=== PATIENT | male | born 1945 | race Caucasian/White ===

== ENCOUNTER 2022-08-19 06:25 | Inpatient (IN) | payer MEDICARE, BC ==
[~2022-08-19] VITALS: Ht 175.3 cm; Wt 92.1 kg
--- NOTE | 2022-08-19 06:28 | NUR ---
bib from home for body pain and chills. noted 1 episode of hematuria febrile at triage 103.3. PT a/ox3. Tolerating R/ A well with no resp distress. Safety measures in place. Connected pt to pox and monitor.
--- NOTE | 2022-08-19 06:36 | NUR ---
RAC #18G S/L BLOOD COLLECTED AND SENT TO LAB
--- NOTE | 2022-08-19 06:36 | NUR ---
COVID ANTIGEN SWAB COLLECTED AND SENT TO LAB
--- NOTE | 2022-08-19 06:40 | NUR ---
PROVIDED PT WITH URINAL; AWAITING URINE SAMPLE
--- NOTE | 2022-08-19 06:45 | NUR ---
DR. PAIZ AT BEDSIDE
[2022-08-19] MEDS ORDERED: ACETAMINOPHEN ES 500 MG TABLET ONE (06:52)
[2022-08-19] MEDS ORDERED: VANCOMYCIN 1 GM /D5W 250 ML PB IV ONE (06:54)
[2022-08-19] MEDS ORDERED: ACETAMINOPHEN ES 500 MG TABLET PO ONE (07:00)
[2022-08-19] MEDS ORDERED: IV NS 0.9% 1,000 ML BAG IV ONE (07:00)
[2022-08-19] MEDS ORDERED: VANCOMYCIN 1 GM in IV D5W 250 ML IV ONE (07:00)
[2022-08-19] MEDS ORDERED: AZTREONAM 2 G in IV NS 0.9% 100 ML IV ONE (07:00)
--- NOTE | 2022-08-19 07:10 | NUR ---
COVID ANTIGEN SWAB COLLECTED AND SENT TO LAB
--- NOTE | 2022-08-19 07:12 | NUR ---
URINE COLLECTED AND SENT TO LAB
--- NOTE | 2022-08-19 07:18 | NUR ---
INFLUENZA SWAB COLLECTED AND SENT TO LAB
[2022-08-19 07:46] LABS: BILIRUBIN,URINE 1+ (NEGATIVE); COLOR,URINE DARK YELLOW (YELLOW); LEUKOCYTE ESTERASE ,URINE 2+ (NEGATIVE); NITRITE, URINE NEGATIVE (NEGATIVE); PROTEIN,URINE 2+ mg/dl (NEGATIVE); UGLUCOSE NEGATIVE (NEGATIVE); UROBILINOGEN,URINE 0.2 EU/dL (0.2)
[2022-08-19 07:47] LABS: BACTERIA,URINE Rare /HPF (None Seen); BASOPHILS % (AUTO) 0.2 % (0.0-2.0); HEMATOCRIT 44 % (39-51); HEMOGLOBIN 14.3 g/dL (13.5-17.5); LYMPHOCYTES # (AUTO) 1.3 K/uL (0.8-4.8); LYMPHOCYTES % (AUTO) 10.7 % (20.0-44.0); MEAN CORPUSCULAR HGB CONC 33 g/dl (31.0-36.0); MEAN CORPUSCULAR VOLUME 90 fL (80-96); MONOCYTES # (AUTO) 0.2 K/uL (0.1-1.30); MONOCYTES % (AUTO) 1.5 % (2.0-12.0); NEUTROPHILS # (AUTO) 10.6 K/uL (1.8-8.9); NEUTROPHILS % (AUTO) 86.6 % (43.0-81.0); PLATELET COUNT (AUTO) 227 K/uL (150-450); RBC,URINE TOO NUMEROUS TO COUN /HPF (0-2); SQUAMOUS EPITHELIAL CELL,UR Few /HPF (None Seen); WHITE BLOOD COUNT (AUTO) 12.2 K/uL (4.3-11.0)
[2022-08-19 08:01] LABS: ALANINE AMINOTRANSFERASE 32 U/L (12-78); ALBUMIN 3.7 g/dL (3.4-5.0); ALKALINE PHOSPHATASE 102 U/L (46-116); ASPARTATE AMINOTRANSFERASE 17 U/L (15-37); BILIRUBIN,DIRECT 0.2 mg/dL (0.0-0.2); BILIRUBIN,TOTAL 0.5 mg/dL (0.2-1.0); CALCIUM, SERUM 11.7 mg/dL (8.5-10.1); CARBON DIOXIDE 25 mmol/L (21-32); CHLORIDE 104 mmol/L (98-107); CREATININE 1.1 mg/dL (0.6-1.3); GLUCOSE 132 mg/dL (74-106); POTASSIUM 4.2 mmol/L (3.5-5.1); SODIUM SERUM 142 mmol/L (136-145); TOTAL PROTEIN, SERUM 7.6 g/dL (6.4-8.2); UREA NITROGEN, BLOOD 13 mg/dL (7-18)
[2022-08-19] MEDS ORDERED: BACITRACIN ZINC OINT PACKET 1 EA PACKET TP ONE (08:15)
--- NOTE | 2022-08-19 09:23 | NUR ---
RESTING AT THIS TIME
--- NOTE | 2022-08-19 09:48 | NUR ---
ROOM 117-2
[2022-08-19] MEDS ORDERED: MAGNESIUM HYDROXIDE 30 ML UDC PO PRN (10:00)
[2022-08-19] MEDS ORDERED: ACETAMINOPHEN 325 MG TABLET PO PRN (10:00)
[2022-08-19] MEDS ORDERED: MAG HYDROX/AL HYDROX/SIMETH 30 ML UDC PO PRN (10:00)
[2022-08-19] MEDS ORDERED: CEFEPIME 1 GM in IV D5W 50 ML IV SCH (10:00)
[2022-08-19] MEDS ORDERED: ONDANSETRON HCL/PF 4 MG/2 ML VIAL IVP PRN (10:00)
[2022-08-19] MEDS ORDERED: Z GUARD REMEDY 4 OZ OINT TP PRN (10:00)
[2022-08-19] MEDS ORDERED: CETI-194 PO (10:09)
[2022-08-19] MEDS ORDERED: IBAN150T16 PO (10:09)
[2022-08-19] MEDS ORDERED: LACT1CAP71 PO (10:09)
[2022-08-19] MEDS ORDERED: SERT100T PO (10:09)
[2022-08-19] MEDS ORDERED: ATOR40TA PO (10:09)
[2022-08-19] MEDS ORDERED: TAMS-12 PO (10:09)
[2022-08-19] MEDS ORDERED: ASPI-1169 PO (10:09)
[2022-08-19] MEDS ORDERED: OMEP20TA5 PO (10:09)
[2022-08-19] MEDS ORDERED: CHOL100062 PO (10:09)
--- NOTE | 2022-08-19 10:35 | NUR ---
OK TO GIVE MAXPIMIN IVPB ANTBIOTIC WITH ALLERIC TO PCN
[2022-08-19] MEDS: CEFEPIME 2 GM in IV D5W 100 ML IV SCH ×2 (10:48→23:17)
--- NOTE | 2022-08-19 10:56 | NUR ---
HAND OFF TO YELENA. Dooley RN TO ROOM 117-2 VIA CAM PIERRE VS AND CONDITION
--- NOTE | 2022-08-19 11:15 | NUR ---
PATIENT TRANSFERED AND ADMITTED PER ACLS PROTOCOL
--- NOTE | 2022-08-19 11:25 | NUR ---
RN OPENING NOTE RECEIVED PATIENT FROM ER, BROUGHT VIA GURNEY, ON RA WITH SAT 98%. IV ACCESS RIGHT AC, RUNNING NS AT 100 ML/HR. PT ABLE TO USE URINAL AND AMBULATE TO THE BATHROOM WITH ASSISTANCE. SAFETY MEASURES IMPLEMENTED, BED LOCKED AND IN LOWEST POSITION, WILL CONTINUE TO MONITOR.
[2022-08-19 12:00] VITALS: BP 111/56
[2022-08-19] MEDS: IV NS 0.9% 1,000 ML IV PRN ×2 (12:38→23:41)
[2022-08-19 16:00] VITALS: BP 109/59
[2022-08-19] MEDS: VANCOMYCIN 1 GM in IV D5W 250 ML IV SCH (17:06)
--- NOTE | 2022-08-19 18:28 | NUR ---
RN OPENING NOTE PATIENT ASLEEP IN BED, ON RA WITH SAT 98%. IV ACCESS RIGHT AC, RUNNING NS AT 100 ML/HR. PT ABLE TO USE URINAL AND AMBULATE TO THE BATHROOM WITH ASSISTANCE. SAFETY MEASURES IMPLEMENTED, BED LOCKED AND IN LOWEST POSITION, WILL ENDORSE TO THE NEXT SHIFT NURSE FOR MARCELLA.
--- NOTE | 2022-08-19 19:30 | NUR ---
RN NOTES RECEIVED REPORT FROM MORNING SHIFT. PATIENT IN BED AT BEDSIDE. ON ROOM AIR SATING 96% NO SOB NOT ON ANY RESPIRATORY DISTRESS NOTED AT THIS TIME. WITH IV ACCESS AT LAC # 20 PATENT FLUSHES WELL RUNNING NS 100CC/HR. ALL SAFETY MEASURES IN PLACE HOB ELEVATED. CALL LIGHT WITHIN REACH. WILL CLOSELY MONITOR THE PATIENT
[2022-08-19 20:00] VITALS: BP 119/61
[2022-08-19] MEDS: ATORVASTATIN 40 MG TABLET PO SCH (21:27)
[2022-08-19] MEDS ORDERED: HYDROCODONE/APAP 5/325MG TABLET PO PRN (23:30)
[2022-08-20] VITALS: BP 109/61
[2022-08-20 04:00] VITALS: BP 99/54
[2022-08-20] MEDS: VANCOMYCIN 1 GM in IV D5W 250 ML IV SCH ×2 (05:23→17:56)
[2022-08-20 06:37] LABS: BASOPHILS % (AUTO) 0.3 % (0.0-2.0); EOSINOPHILS % (AUTO) 0.9 % (0.0-6.0); HEMATOCRIT 34 % (39-51); HEMOGLOBIN 11.7 g/dL (13.5-17.5); LYMPHOCYTES % (AUTO) 16.2 % (20.0-44.0); MEAN CORPUSCULAR HGB CONC 34 g/dl (31.0-36.0); MEAN CORPUSCULAR VOLUME 88 fL (80-96); MONOCYTES # (AUTO) 1.1 K/uL (0.1-1.30); MONOCYTES % (AUTO) 9.4 % (2.0-12.0); NEUTROPHILS % (AUTO) 73.2 % (43.0-81.0); PLATELET COUNT (AUTO) 164 K/uL (150-450); RED BLOOD CELL COUNT(AUTO) 3.91 MIL/uL (4.5-6.0); WHITE BLOOD COUNT (AUTO) 12.2 K/uL (4.3-11.0)
[2022-08-20 06:47] LABS: CALCIUM, SERUM 9.7 mg/dL (8.5-10.1); CARBON DIOXIDE 29 mmol/L (21-32); CHLORIDE 105 mmol/L (98-107); CREATININE 0.9 mg/dL (0.6-1.3); GLUCOSE 120 mg/dL (74-106); MAGNESIUM 1.6 mg/dL (1.8-2.4); PHOSPHORUS 2.7 mg/dL (2.5-4.9); POTASSIUM 3.5 mmol/L (3.5-5.1); SODIUM SERUM 139 mmol/L (136-145); UREA NITROGEN, BLOOD 11 mg/dL (7-18)
--- NOTE | 2022-08-20 07:29 | NUR ---
SANDING MACHINE TENDER AUTOMATIC OPENING PATIENT RECEIVED IN BED, ASLEEP. ON ROOM AIR WITH NO SIGNS OF RESPIRATORY DISTRESS. ON TELE MONITOR. IV ACCESS AT LAC # 20 PATENT RUNNING NS 100 ML/HR. ALL SAFETY MEASURES IN PLACE WITH BED IN LOWEST LOCKED POSITION, HOB ELEVATED, SIDE RAILS UP, AND CALL LIGHT WITHIN REACH. WILL CONTINUE TO MONITOR PATIENT.
[2022-08-20 08:00] VITALS: BP 96/54
[2022-08-20] MEDS: CHOLECALCIFEROL 1,000 UNIT TABLET (VIT D3) PO SCH (08:46)
[2022-08-20] MEDS: LACTOBACILLUS RHAMNOSUS GG 1 EACH CAP.SPRINK PO SCH (08:46)
[2022-08-20] MEDS: cetrizine 10 MG TABLET PO SCH (08:46)
[2022-08-20] MEDS: PANTOPRAZOLE 40 MG TABLET.DR PO SCH (08:46)
[2022-08-20] MEDS: TAMSULOSIN 0.4 MG CAP.SR.24H PO SCH (08:46)
[2022-08-20] MEDS: SERTRALINE HCL 50 MG TABLET PO SCH (08:47)
[2022-08-20] MEDS: ASPIRIN 81 MG TAB.CHEW PO SCH (08:48)
[2022-08-20] MEDS: CEFEPIME 2 GM in IV D5W 100 ML IV SCH ×2 (10:27→23:07)
[2022-08-20 12:00] VITALS: BP 114/67
[2022-08-20] MEDS ORDERED: MAGNESIUM OXIDE 400 MG TABLET PO ONE (12:00)
[2022-08-20] MEDS: IV NS 0.9% 1,000 ML IV PRN (15:57)
[2022-08-20 16:00] VITALS: BP 114/64
--- NOTE | 2022-08-20 17:50 | NUR ---
PATIENT AND NOTIFIED REGARDING IBANDRONATE SODIUM (BONIVA). STATED THAT MEDICATION IS NOT DUE UNTIL NEXT MONDAY, AND THUS WILL BRING IT IN THE DAY BEFORE IF PATIENT IS STILL AT [facility], ALONG WITH INSTRUCTIONS FOR ADMINISTRATION.
--- NOTE | 2022-08-20 18:52 | NUR ---
PIPE INSTALLER CLOSING NOTE PATIENT IN BED WITH AT BEDSIDE. ALERT AND ORIENTED X4, BUT CAN BE FORGETFUL. ON ROOM AIR WITH NO SIGNS OF RESPIRATORY DISTRESS, SATING AT 96%. ON TELE MONITOR READING SB 51. IV ACCESS AT LFA 22G PATENT AND INTACT RUNNING VANCO WITH NS 100 ML/HR. ALL DUE MEDS GIVEN AND PATIENT KEPT CLEAN AND COMFORTABLE. ALL SAFETY MEASURES IN PLACE WITH BED IN LOWEST LOCKED POSITION, HOB ELEVATED, SIDE RAILS UP, AND CALL LIGHT WITHIN REACH. WILL ENDORSE TO ONCOMING SHIFT FOR MARCELLA.
[2022-08-20 20:00] VITALS: BP 131/74
[2022-08-20] MEDS: ATORVASTATIN 40 MG TABLET PO SCH (21:28)
[2022-08-21] VITALS: BP 129/82
[2022-08-21] MEDS: IV NS 0.9% 1,000 ML IV PRN ×2 (02:05→17:08)
[2022-08-21 04:00] VITALS: BP 125/82
[2022-08-21] MEDS: VANCOMYCIN 1 GM in IV D5W 250 ML IV SCH ×2 (05:35→17:04)
--- NOTE | 2022-08-21 06:34 | NUR ---
RN NOTES NO SIGNIFICANT EVENT OVERNIGHT
[2022-08-21 07:19] LABS: BASOPHILS % (AUTO) 0.3 % (0.0-2.0); EOSINOPHILS % (AUTO) 3.4 % (0.0-6.0); HEMATOCRIT 37 % (39-51); HEMOGLOBIN 12.5 g/dL (13.5-17.5); LYMPHOCYTES # (AUTO) 2.5 K/uL (0.8-4.8); LYMPHOCYTES % (AUTO) 23.6 % (20.0-44.0); MEAN CORPUSCULAR HGB CONC 34 g/dl (31.0-36.0); MEAN CORPUSCULAR VOLUME 89 fL (80-96); MONOCYTES # (AUTO) 1.3 K/uL (0.1-1.30); MONOCYTES % (AUTO) 12.1 % (2.0-12.0); NEUTROPHILS # (AUTO) 6.3 K/uL (1.8-8.9); NEUTROPHILS % (AUTO) 60.6 % (43.0-81.0); PLATELET COUNT (AUTO) 174 K/uL (150-450); RED BLOOD CELL COUNT(AUTO) 4.13 MIL/uL (4.5-6.0); WHITE BLOOD COUNT (AUTO) 10.4 K/uL (4.3-11.0)
--- NOTE | 2022-08-21 07:26 | NUR ---
COMPOSITION ROOFER OPENING NOTE PATIENT RECEIVED IN BED. ON ROOM AIR, TOLERATING WELL WITH NO SIGNS OF SOB OR RESPIRATORY DISTRESS. ON TELE MONITOR. IV ACCESS AT LFA 22G PATENT AND INTACT. CONDOM CATHETER IN PLACE DRAINING YELLOW URINE. ALL SAFETY MEASURES IN PLACE WITH BED IN LOWEST LOCKED POSITION, HOB ELEVATED, SIDE RAILS UP, AND CALL LIGHT AND TABLE WITHIN REACH. WILL CONTINUE TO MONITOR.
[2022-08-21 08:00] VITALS: BP 135/66
[2022-08-21 08:01] LABS: CALCIUM, SERUM 10.1 mg/dL (8.5-10.1); CREATININE 0.8 mg/dL (0.6-1.3); MAGNESIUM 1.9 mg/dL (1.8-2.4); POTASSIUM 3.8 mmol/L (3.5-5.1)
[2022-08-21] MEDS: PANTOPRAZOLE 40 MG TABLET.DR PO SCH (08:23)
[2022-08-21] MEDS: cetrizine 10 MG TABLET PO SCH (08:23)
[2022-08-21] MEDS: SERTRALINE HCL 50 MG TABLET PO SCH (08:23)
[2022-08-21] MEDS: LACTOBACILLUS RHAMNOSUS GG 1 EACH CAP.SPRINK PO SCH (08:23)
[2022-08-21] MEDS: CHOLECALCIFEROL 1,000 UNIT TABLET (VIT D3) PO SCH (08:23)
[2022-08-21] MEDS: ASPIRIN 81 MG TAB.CHEW PO SCH (08:23)
[2022-08-21] MEDS: TAMSULOSIN 0.4 MG CAP.SR.24H PO SCH (08:23)
[2022-08-21] MEDS: CEFEPIME 2 GM in IV D5W 100 ML IV SCH ×2 (10:11→22:08)
[2022-08-21 16:00] VITALS: BP 143/64
--- NOTE | 2022-08-21 18:33 | NUR ---
MS RN CLOSING NOTE PATIENT IN BED WITH AT BEDSIDE. ALERT AND ORIENTED X4, CALM AND COOPERATIVE. ON ROOM AIR SATING AT 100%. TOLERATING WELL WITH NO SIGNS OF SOB OR RESPIRATORY DISTRESS. IV ACCESS AT LFA 22G PATENT AND INTACT WITH NS RUNNING AT 100 ML/HR. CONDOM CATHETER IN PLACE DRAINING YELLOW URINE. ALL DUE MEDS GIVEN AND PATIENT KEPT CLEAN AND COMFORTABLE. ALL SAFETY MEASURES IN PLACE WITH BED IN LOWEST LOCKED POSITION, HOB ELEVATED, SIDE RAILS UP, AND CALL LIGHT AND TABLE WITHIN REACH. WILL ENDORSE TO ONCOMING SHIFT FOR MARCELLA.
[2022-08-21] MEDS: ATORVASTATIN 40 MG TABLET PO SCH (22:06)
[2022-08-22] VITALS: BP 140/64
[2022-08-22] MEDS: IV NS 0.9% 1,000 ML IV PRN (05:37)
[2022-08-22] MEDS: VANCOMYCIN 1 GM in IV D5W 250 ML IV SCH (05:42)
[2022-08-22 06:40] LABS: BASOPHILS % (AUTO) 0.3 % (0.0-2.0); EOSINOPHILS % (AUTO) 4.4 % (0.0-6.0); HEMATOCRIT 37 % (39-51); HEMOGLOBIN 12.4 g/dL (13.5-17.5); LYMPHOCYTES # (AUTO) 2.6 K/uL (0.8-4.8); LYMPHOCYTES % (AUTO) 26.4 % (20.0-44.0); MEAN CORPUSCULAR HGB CONC 34 g/dl (31.0-36.0); MEAN CORPUSCULAR VOLUME 89 fL (80-96); MONOCYTES # (AUTO) 0.9 K/uL (0.1-1.30); MONOCYTES % (AUTO) 9.4 % (2.0-12.0); NEUTROPHILS # (AUTO) 5.8 K/uL (1.8-8.9); NEUTROPHILS % (AUTO) 59.5 % (43.0-81.0); PLATELET COUNT (AUTO) 186 K/uL (150-450); RED BLOOD CELL COUNT(AUTO) 4.15 MIL/uL (4.5-6.0); WHITE BLOOD COUNT (AUTO) 9.8 K/uL (4.3-11.0)
[2022-08-22 06:55] LABS: CALCIUM, SERUM 10.3 mg/dL (8.5-10.1); CREATININE 0.9 mg/dL (0.6-1.3); POTASSIUM 3.9 mmol/L (3.5-5.1)
[2022-08-22] MEDS: PANTOPRAZOLE 40 MG TABLET.DR PO SCH (07:47)
[2022-08-22 08:00] VITALS: BP 132/59
[2022-08-22] MEDS: CHOLECALCIFEROL 1,000 UNIT TABLET (VIT D3) PO SCH (08:15)
[2022-08-22] MEDS: ASPIRIN 81 MG TAB.CHEW PO SCH (08:16)
[2022-08-22] MEDS: cetrizine 10 MG TABLET PO SCH (08:17)
[2022-08-22] MEDS: SERTRALINE HCL 50 MG TABLET PO SCH (08:17)
[2022-08-22] MEDS: LACTOBACILLUS RHAMNOSUS GG 1 EACH CAP.SPRINK PO SCH (08:17)
[2022-08-22] MEDS: TAMSULOSIN 0.4 MG CAP.SR.24H PO SCH (08:17)
[2022-08-22] MEDS: CEFEPIME 2 GM in IV D5W 100 ML IV SCH (10:17)
[2022-08-22] MEDS ORDERED: LEVO750T46 PO (12:26)
--- NOTE | 2022-08-22 15:20 | NUR ---
PATIENT IS DISCHARGED HOME WITH SPOUSE, PATIENT IS IN STABLE CONDITION.
--- NOTE | 2022-08-22 15:21 | NUR ---
BLADDER SCAN DONE , <250ML.
[2022-08-23] MEDS ORDERED: Medication Not On Formulary EA (Ibandronate Sodium (Boniva) 150 MG) PO SCH (09:00)
== END 2022-08-22 15:13 | disposition home health service (06) | DRG 872 ==
LOC: ER 06:31 → TELE1 10:23 → MEDSG1 08-21 10:43
PROVIDERS: ADMIT Nurse Practitioner Acute Care; ATTEND Nurse Practitioner Acute Care
DX: A41.9 Sepsis, unspecified organism (principal); N39.0 Urinary tract infection, site not specified; E87.20 Acidosis, unspecified; D68.69 Other thrombophilia; B96.20 Unspecified Escherichia coli [E. coli] as the cause of diseases classified elsewhere; E78.5 Hyperlipidemia, unspecified; K21.9 Gastro-esophageal reflux disease without esophagitis; Z20.822 Contact with and (suspected) exposure to COVID-19; Z85.46 Personal history of malignant neoplasm of prostate; Z87.442 Personal history of urinary calculi; Z88.0 Allergy status to penicillin; Z92.3 Personal history of irradiation; Z92.21 Personal history of antineoplastic chemotherapy; R32 Unspecified urinary incontinence; N20.0 Calculus of kidney; Z74.09 Other reduced mobility; R78.89 Finding of other specified substances, not normally found in blood; N40.1 Benign prostatic hyperplasia with lower urinary tract symptoms; Z85.841 Personal history of malignant neoplasm of brain
CPT/HCPCS: 36415; 71045-TC; 80048-TC; 80076-TC; 80202-TC; 81001; 83605-TC; 83735-TC; 84100-TC; 84484-TC; 85025-TC; 85730-TC; 87040-TC; 87081-TC; 87086-TC; 97110-TC; 97116-TC; 97530-TC; A4223; A4349; C9803; G0378; J0692; J3370; J3490; J7030; J7060